=== PATIENT | female | born 1940 | race African-American/Black ===

== ENCOUNTER → 2016-11-23 | Outpatient (CLI) | payer MEDICARE, OTHER ==
[~2016-11-23] MED LIST: AMLODIPINE BESIL1 GM PO; BACTRIM DS TABL1 TAB PO; BENADRYL PO; BENTYL10 MG DOB; BENZONATATE PO; FAMOTIDINE PO; LISINOPRIL-HCTZ1 T14 PO; LISINOPRIL20 MG PO; LORTAB 10-5001 EACH PO; NORCO 5/325 TAB1 TAB PO; NORFLEX100 M1 PO; NORVASC; NORVASC PO; PERCOCET 5-3251 TAB PO; PERCOCET PO; PHENERGAN PO; PREDNISONE PO; TAMIFLU75 M1 DOB; TYLENOL #3 PO; ULTRAM PO; VICODIN 5/500 T1 TAB PO; VOLTAREN75 MG PO; ZANTAC150 M1 PO; ZOFRAN ODT4 MG PO
--- NOTE | ~2016-11-23 | MY26 ---
[facility] A Service of [facility] RADIOLOGY TEXT RESULTS PATIENT: NAVID NGUYEN LOCATION: [facility] : 42 UNIT #: [id number] AGE: [address]: Felix Aragon MD SEX: F ORDER DR: [id number] [facility] [address] [place], [place] [address] [id number] O MR#: [id number] Acc #: [id number] NAME: NAVID NGUYEN : 1940 SEX: F STUDY DATE/TIME: 11/23/2016 9:17 UNIT: [facility] ROOM: STUDY DESCRIPTION: [facility] DIAGNOSTIC W/ CAD BILAT Attending Physician: Felix Aragon M.D. Referring Physician: Felix Aragon M.D. Ordering Physician: Felix Aragon M.D. Primary Care Physician: Harman Valdez M.D. MEDICAL IMAGING REPORT This report is preliminary unless electronic signature is present EXAM Bilateral digital diagnostic mammogram with CAD device, 11/23/2016 HISTORY Right breast carcinoma status post lumpectomy and radiation therapy March 2016. FINDINGS Bilateral digital diagnostic mammogram was performed in craniocaudal, mediolateral oblique and mediolateral projections demonstrating moderate fibroglandular tissue. There is architectural distortion in the right breast from prior lumpectomy and there is skin thickening in the right breast from prior radiation therapy. There is no suspicious mass or cluster of microcalcifications. The films have been reviewed by an FDA-approved CAD device. IMPRESSION Benign findings right breast. No mammographic evidence of malignancy. Annual mammogram is recommended. Patients over the age of 40 are entered into a reminder system with target due date for the next mammogram. A result letter will also be sent to the patient. BIRADS: 2 Benign Finding Dictated by... Ethan Bradley M.D. THIS IS AN ELECTRONICALLY VERIFIED REPORT Ethan Bradley M.D. at 11/23/2016 4:53 PM KRT/lisa [facility] A Service of [facility] RADIOLOGY TEXT RESULTS PATIENT: NAVID NGUYEN LOCATION: [facility] : 42 UNIT #: [id number] AGE: [address]: Felix Aragon MD SEX: F ORDER DR: TD: 11/23/2016 12:46 JOB #: [id number] MEDICAL IMAGING REPORT Page 1 of 1 COPY
== END | disposition home or self-care (01) ==
LOC: CMAM 11-19 09:00
DX: Z08 Encounter for follow-up examination after completed treatment for malignant neoplasm (principal); Z85.3 Personal history of malignant neoplasm of breast; Z92.3 Personal history of irradiation; Z98.890 Other specified postprocedural states
CPT/HCPCS: G0204